=== PATIENT | female | born 1995 | race Caucasian/White ===

== ENCOUNTER 2020-08-24 14:58 | Outpatient (CLI) | payer MEDICAID ==
[2020-08-24 15:22] VITALS: BP 116/72
[2020-08-24 15:32] LABS: BASOPHILS % (AUTO) 0 % (0-1); EOSINOPHILS % (AUTO) 0 % (1-7); LYMPHOCYTES % (AUTO) 18 % (22-44); MEAN CORPUSCULAR HEMOGLOBIN 33.6 pg (27.0-34.8); MEAN CORPUSCULAR HGB CONC 34.7 g/dL (32.4-35.8); MEAN PLATELET VOLUME 8.8 fL (7.4-10.4); MONOCYTES % (AUTO) 6 % (2-9); NEUTROPHILS % (AUTO) 76 % (42-75); PLATELET COUNT 190 x10^3/uL (130-400); RED BLOOD COUNT 4.28 x10^6/uL (3.82-5.3); RED CELL DISTRIBUTION WIDTH 13.2 % (9.6-15.2)
[2020-08-24 15:34] LABS: MD NO
[2020-08-24 15:36] LABS: ALANINE AMINOTRANSFERASE 16 U/L (12-78); ANION GAP 8 mmol/L (5-15); BILIRUBIN, DIRECT 0.2 mg/dL (0.1-0.2); CHLORIDE 108 mmol/L (98-107); CREATININE 0.55 mg/dL (0.55-1.02)
[2020-08-24 15:39] LABS: ALKALINE PHOSPHATASE 131 U/L (45-117); BILIRUBIN,TOTAL 0.7 mg/dL (0.2-1.0); TOTAL PROTEIN 6.7 g/dL (6.4-8.2)
[2020-08-24 15:44] LABS: MICROSCOPIC INDICATED
[2020-08-24 15:57] LABS: CREATININE,URINE RANDOM 21.2 mg/dL
== END 2020-08-24 16:40 | disposition home or self-care (01) ==
LOC: LDOP 14:58
PROVIDERS: ATTEND Obstetrics & Gynecology
DX: O16.3 Unspecified maternal hypertension, third trimester (principal); Z3A.30 30 weeks gestation of pregnancy
CPT/HCPCS: 36415; 59025; 80053; 81001; 82248; 82570; 84156; 84550; 85025; 87086

== ENCOUNTER 2020-09-25 10:43 | Observation (INO) | payer BC, MEDICAID ==
[~2020-09-25] VITALS: Ht 152.4 cm; Wt 61.8 kg
[2020-09-25 11:37] VITALS: BP 128/72
[2020-09-25 11:47] LABS: MICROSCOPIC INDICATED
[2020-09-25] MEDS ORDERED: PREN1TAB60 PO (11:59)
[2020-09-25] MEDS ORDERED: ASPI-515 PO (11:59)
[2020-09-25 14:46] LABS: MICROSCOPIC NOT IND
== END 2020-09-25 16:00 | disposition home or self-care (01) ==
LOC: LDOP 10:43 → LDIP 12:30 → UNDOADMOB 13:35
PROVIDERS: ADMIT Obstetrics & Gynecology; ATTEND Obstetrics & Gynecology
DX: O36.8130 Decreased fetal movements, third trimester, not applicable or unspecified (principal); O99.343 Other mental disorders complicating pregnancy, third trimester; F41.9 Anxiety disorder, unspecified; O12.03 Gestational edema, third trimester; Z87.440 Personal history of urinary (tract) infections; Z3A.34 34 weeks gestation of pregnancy; Z79.899 Other long term (current) drug therapy
CPT/HCPCS: 59025; 76819; 81001; 81003; 87086; G0378